=== PATIENT | male | born 1960 | race Caucasian/White ===

== ENCOUNTER → 2019-10-20 | Day surgery (SDC) | payer OTHER ==
[~2019-10-20] MED LIST: ATOR10TA60 PO; CETI10TA24 PO; IPRATRPIUM/ALBUTEROL 0.5/2.5MG 3 ML NEBU. NEB PRN; IV RINGERS SOLUTION,LACTATED 1,000 ML IV SCH; ONDANSETRON PF 4 MG/2 ML VIAL. IV PRN; PROPOFOL 10,000 MCG/ML (20ML) VIAL IV ONE; TAMS0.4C97 PO
[2019-10-20 13:20] VITALS: BP 161/99
--- NOTE | 2019-10-22 12:06 | PATHOLOGY ---
[facility] Accession Number: [id number] . 01 Material submitted: . colon - DESCENDING POLYP. Modifiers: descending . 01 Clinical history: . None provided . 02 Diagnosis: Colonic mucosa "descending polyp biopsy": - Tubular adenoma. - There is no evidence of high-grade dysplasia or malignancy. (SHA:pit 10/22/2019) QTP 10/22/2019 1024 Local . 02 Electronically signed: . Tim Evangelista MD, Pathologist NPI- [id number] . 01 Gross description: . The specimen is received in formalin, labeled "Mario Ishaan, descending polyp". Received is a segment of pale hoyt soft tissue measuring 0.4 cm in maximum dimensions. The specimen is submitted entirely in cassette A1. ([facility]; 10/21/2019) QA/[facility] 10/21/2019 1542 Local . 02 Pathologist provided ICD-10: D12.4 . 02 CPT . 943256 Specimen Comment: A courtesy copy of this report has been sent to [phone] Specimen Comment: [id number] Specimen Comment: Report sent to / DR VANG Specimen Comment: A duplicate report has been generated due to demographic updates. Performed at: 01 [facility] [address], [place], [place] [id number] MD David Amador MD Phone: [phone] Performed at: 02 [facility] [address] [place], [place] [id number] MD Fred Rich MD Phone: [phone]
== END | disposition home or self-care (01) ==
LOC: SURG 11:35
PROVIDERS: ATTEND Emergency Medicine
DX: Z12.11 Encounter for screening for malignant neoplasm of colon (principal); D12.4 Benign neoplasm of descending colon; E66.9 Obesity, unspecified; E78.5 Hyperlipidemia, unspecified; J44.9 Chronic obstructive pulmonary disease, unspecified; N40.0 Benign prostatic hyperplasia without lower urinary tract symptoms; Z86.010 Personal history of colon polyps; Z98.890 Other specified postprocedural states; Z79.899 Other long term (current) drug therapy; Z68.33 Body mass index [BMI] 33.0-33.9, adult
CPT/HCPCS: 45380; 88305; J2704; J7120; 45378